=== PATIENT | male | born 1970 | race Caucasian/White ===

== ENCOUNTER 2023-10-02 10:43 | Emergency (ER) | payer BC, OTHER ==
[2023-10-02 10:57] VITALS: BP 129/76; PULSE 98; RESP 18; TEMP 98.3; BMI 28.8
[2023-10-02] MEDS ORDERED: ACETAMINOPHEN 500 MG TABLET (FP) ONE ×2 (11:55→11:56)
[2023-10-02] MEDS: ACETAMINOPHEN 500 MG TABLET (FP) PO ONE (11:59)
== END 2023-10-02 13:12 | disposition home or self-care (01) ==
LOC: JER 10:43 → JERFT 10:43
DX: S89.92XA Unspecified injury of left lower leg, initial encounter (principal); X58.XXXA Exposure to other specified factors, initial encounter
CPT/HCPCS: 73560-TC-LT-FY; 99283-25